=== PATIENT | female | born 1955 | race Caucasian/White ===

== ENCOUNTER 2024-12-14 06:18 | Day surgery (SDC) | payer MEDICARE, OTHER, SELFPAY ==
[2024-12-14 09:02] LABS: Glucose - Point of Care 120 mg/dl (70-99)
== END 2024-12-14 10:11 | disposition home or self-care (01) ==
LOC: GI 06:18
PROVIDERS: ATTENDING PHYSICIAN Internal Medicine Gastroenterology
DX: Z12.11 Encounter for screening for malignant neoplasm of colon (principal); Z80.0 Family history of malignant neoplasm of digestive organs; K64.8 Other hemorrhoids; D12.0 Benign neoplasm of cecum; R10.13 Epigastric pain; K31.89 Other diseases of stomach and duodenum
CPT/HCPCS: 45380; 43239; 88305; 82962; 88342